=== PATIENT | female | born 1960 | race Caucasian/White ===

== ENCOUNTER → 2024-05-11 12:17 | Outpatient (CLI) | payer OTHER, SELFPAY ==
--- NOTE | 2024-05-11 12:19 | DI.RAD.S_ITS ---
PROCEDURE: XR DEXA AXIAL SKELETON INDICATIONS: Screening COMPARISON: None. FINDINGS: Lumbar Spine: Bone mineral density 0.855 g/cm2, T score -1.7. Left Femoral Neck: Bone mineral density 0.656 g/cm2, T score-1.7. Left Hip: Bone mineral density 0.861 g/cm2, T score -0.7. Fracture Risk Calculation (when applicable): 10-year fracture risk of a major osteoporotic fracture 8.3 percent and of a hip fracture 0.8 percent. (T score greater or equal to -1.0 to: NORMAL) (T score from -1.1 to -2.4: OSTEOPENIA) (T score less than or equal to -2.5: OSTEOPOROSIS) IMPRESSION: Osteopenia with increased 10 year fracture risk as above. Follow-up guidelines as follows: Osteoporosis: Consider a repeat DEXA and Vertebral Fracture Assessment (VFA) exam in 2 years or sooner if medically necessary, to reassess this patient's status. Osteopenia: Consider a repeat DEXA in 2-3 years to reassess this patient's status, or if there is a new clinical indication. Normal: Consider a repeat DEXA in 5 years or sooner, or if there is a new clinical indication. All treatment decisions require clinical judgment and consideration of individual patient factors, including patient preferences, comorbidities, previous drug use, risk factors not captured in the FRAX model (e.g., frailty, falls, vitamin D deficiency, increased bone turnover, interval significant decline in bone density ) and possible under- or over-estimation of fracture risk by FRAX. In addition, the NOF Guide recommends that FDA-approved medical therapies be considered in postmenopausal women and men age >= 50 years with a: * Hip or vertebral (clinical or morphometric) fracture * T-score of <=-2.5 at the spine or hip * Ten-year fracture probability by FRAX of >= 3% for hip fracture or >=20% for major osteoporotic fracture. Dictated by: Gurpreet Hernandez M.D. on 05/11/2024 at 14:02 Approved by: Gurpreet Hernandez M.D. on 05/11/2024 at 14:03
== END ==
PROVIDERS: Referring Provider Orthopaedic Surgery Hand Surgery; Visit Provider Orthopaedic Surgery Hand Surgery
DX: Z13.820 Encounter for screening for osteoporosis (principal); M85.89 Other specified disorders of bone density and structure, multiple sites; Z78.0 Asymptomatic menopausal state
CPT/HCPCS: 77080

== ENCOUNTER → 2025-01-05 12:31 | Outpatient (CLI) | payer OTHER, SELFPAY | PROVIDERS: Visit Provider Registered Nurse | DX: R30.0 Dysuria (principal) | CPT/HCPCS: 87086 ==

== ENCOUNTER 2025-01-06 23:10 | Emergency (ER) | payer OTHER, SELFPAY ==
[2025-01-06 23:33] VITALS: BP 136/69; PULSE 98; RESP 18; TEMP 36.4; O2SAT 96; BMI 39.0
--- NOTE | 2025-01-06 23:36 | DI.CT.S_ITS ---
PROCEDURE: CT ABDOMEN PELVIS WO CON INDICATIONS: right flank pain with blood in urine TECHNIQUE: CT of the abdomen and pelvis was obtained without intravenous contrast. Coronal and sagittal reformats were performed. For radiation dose reduction, the following was used: automated exposure control, adjustment of mA and/or kV according to patient size. COMPARISON: None. FINDINGS: Image quality: Diagnostic. Lower Chest: No significant findings. ABDOMEN: Liver: No contour-deforming mass. Gallbladder: Post cholecystectomy Biliary ducts: No biliary dilation. Pancreas: No ductal dilation. Spleen: Size is within normal limits. Adrenal Glands: No adrenal nodules. Kidneys and Ureters: A 5 mm stone in the distal right ureter at the ureterovesicular junction (Hounsfield units of 372) (2/122) with mild right hydroureteronephrosis. No left nephrolithiasis or hydronephrosis. Stomach and Bowel: Normal colonic caliber, without significant wall thickening. Normal appendix. Peritoneum: No abnormal intraperitoneal fluid. No free air. Ventral Wall: No significant hernia. Abdominal Nodes: No retroperitoneal or mesenteric adenopathy by size criteria. Vessels: Aorta and inferior vena cava are normal in size. PELVIS: Pelvic Organs: Unremarkable. Bladder: Unremarkable. Pelvic Nodes: No enlarged lymph nodes. Miscellaneous: No inguinal hernias are seen. Bones: No aggressive osseous abnormality. Mild anterolisthesis of L4 on L5 with degenerative disc disease at this level.. IMPRESSION: Partially obstructive 5 mm stone at the right uretrovesicular junction. Dictated by: Austin Geiger M.D. on 01/07/2025 at 0:27 Approved by: Austin Geiger M.D. on 01/07/2025 at 0:30
[2025-01-06] MEDS: KETOROLAC 30 MG/ML VIAL 15 MG IV (23:48)
[2025-01-06] MEDS: ONDANSETRON 4 MG/2 ML INJ IV (23:49)
[2025-01-07] LABS: Add Manual Diff / Slide Review NO; Hematocrit 36.0 % (36-46); Hemoglobin 11.9 g/dL (12.0-16.0); Lymphocytes Absolute Auto 1600 /uL (1100-4500); Mean Corpuscular HGB Conc 33.0 % (30-36); Mean Corpuscular Hemoglobin 28.1 PG (26-34); Mean Corpuscular Volume 85.2 fL (80-100); Platelet Count 279 X10^3/uL (150-400)
[2025-01-07 00:13] LABS: Alanine Aminotransferase 22 IU/L (<35); Albumin 4.6 g/dL (3.5-5.0); Albumin Globulin Ratio 1.3 (1.0-2.8); Alkaline Phosphatase 110 U/L (38-126); Blood Urea Nitrogen 21 mg/dL (7-17); Calcium 9.3 mg/dL (8.4-10.2); Carbon Dioxide 24 mmol/L (22-32); Chloride 104 mmol/L (98-107); Estimated Glomerular Filt Rate > 60 mL/min (>60); Globulin 3.5 g/dL (1.7-4.1); Glucose 156 mg/dL (70-99); HEMOLYSIS 15 (0-50); Potassium 3.8 mmol/L (3.4-5.1); Sodium 138 mmol/L (137-145); Total Protein 8.1 g/dL (6.3-8.2)
[2025-01-07 02:51] VITALS: BP 142/80; PULSE 77; RESP 18; O2SAT 96
[2025-01-07 03:00] VITALS: PULSE 79; O2SAT 95
[2025-01-07 03:01] VITALS: BP 137/81; PULSE 76; O2SAT 94
--- NOTE | 2025-01-07 03:10 | ED.ABDPAIN ---
HPI - Abdominal Pain General Chief Complaint: Urogenital-Female Stated Complaint: Poss UTI/kidney stones, back pain, nauseous Time Seen by Provider: 01/07/25 03:10 Source: patient Mode of arrival: Ambulatory History of Present Illness HPI narrative: 64-year-old female without history of known kidney stones, complains of right lower abdominal discomfort. Recently seen Clinic, blood in urine, urine culture sent, not taking oral antibiotics. Worsening pain last night. No fevers or chills. Nausea with multiple episodes nonbloody emesis. No diarrhea. No history of colitis or diverticulitis. Related Data Home Medications ?Medication ?Instructions ?Recorded ?Confirmed OMEGA-3 FATTY ACIDS (FISH OIL) ##0 04/07/16 01/05/25 [OSTEO BIFLEX] ##0 04/07/16 01/05/25 albuterol sulfate 90 mcg/actuation 2 puff INH PRN PRN ##0 04/07/16 01/05/25 aerosol inhaler (Ventolin HFA) cetirizine 10 mg tablet 10 mg PO QDAY ##0 04/07/16 01/05/25 Previous Rx's ?Medication ?Instructions ?Recorded lisinopril 10 mg tablet 10 mg PO BID #180 tabs 04/19/17 naproxen 500 mg tablet 500 mg PO BID 7 days #14 tabs 01/07/25 tamsulosin 0.4 mg capsule 0.4 mg PO DAILY #14 caps 01/07/25 Allergies Allergy/AdvReac Type Severity Reaction Status Date / Time No Known Drug Allergies Allergy Verified 01/06/25 23:33 Patient History Medical History (Updated 01/07/25 @ 03:17 by Germán Ortiz MD) Hypertension (Unknown) Asthma (2004) ADHD (attention deficit hyperactivity disorder) (2011) Chickenpox (1965) Anemia (1962) Surgical History S/P ACL repair (2000) Status post hysterectomy Status post breast reduction Family History Father Heart disease Social History Smoking Status: Never smoker Smoking Status: Never smoker Exam Narrative Exam Narrative: GENERAL: Well-developed patient, in mild distress. HEAD: Atraumatic. Normocephalic. EYES: Pupils equal round and reactive. Extraocular motions intact. No scleral icterus. No injection or drainage. ENT: no facial droop, no obvious facial swelling or trauma. NECK: Trachea midline. Non tender CARDIOVASCULAR: Regular rate and rhythm without murmurs, gallops, or rubs. RESPIRATORY: Clear to auscultation. Breath sounds equal bilaterally. No wheezes, rales, or rhonchi. GASTROINTESTINAL: Abdomen soft, non-tender, nondistended. EXTREMITIES: No edema or joint tenderness. BACK: Nontender without deformity or crepitance. No flank tenderness. NEURO: AOx3. Motor functions grossly nonfocal. SKIN: No rash or erythema of visible areas Initial Vital Signs Initial Vital Signs: Vital Signs Temperature 97.6 F 01/06/25 23:33 Pulse Rate 98 H 01/06/25 23:33 Respiratory Rate 18 01/06/25 23:33 Blood Pressure 136/69 01/06/25 23:33 Pulse Oximetry 96 01/06/25 23:33 Oxygen Delivery Method Room Air 01/06/25 23:33 Course Orders Ordered: Discontinued Medications Hydrocodone Bitart/Acetaminophen (Hydrocodone/Acet 5/325 Prepack) 1 bottle MISC DIRECTED ONE Stop: 01/07/25 03:17 Last Admin: 01/07/25 03:48 Dose: 1 bottle Documented By: HANNAH Ketorolac Tromethamine (Ketorolac 30 Mg/Ml Vial) 15 mg IV NOW ONE Stop: 01/06/25 23:37 Last Admin: 01/06/25 23:48 Dose: 15 mg Documented By: HANNAH Ondansetron HCl (Ondansetron 4 Mg/2 Ml Inj) 4 mg IV NOW ONE Stop: 01/06/25 23:37 Last Admin: 01/06/25 23:49 Dose: 4 mg Documented By: HANNAH Ondansetron HCl (Ondansetron 4 Mg Odt Prepack) 1 bottle MISC DIRECTED ONE Stop: 01/07/25 03:17 Last Admin: 01/07/25 03:48 Dose: 1 bottle Documented By: HANNAH Vital Signs Vital signs: Vital Signs - 8 hr 01/06/25 23:33 01/07/25 02:51 01/07/25 02:51 Temperature 97.6 F Pulse Rate 98 H 77 Respiratory Rate 18 18 Blood Pressure 136/69 142/80 H Pulse Oximetry 96 96 Oxygen Delivery Method Room Air Room Air MDM - Abdominal Pain Lab Data Attestation: I reviewed the patient's lab results. Lab results narrative: White blood cell count 19690, hemoglobin 11.9, platelets adequate. Glucose 156. Renal function, serum CO2, electrolytes unremarkable. Liver functions normal. 01/06/25 23:50 01/06/25 23:50 Labs: Lab Results 01/06/25 01/07/25 Range/Units 23:50 03:28 WBC 10.2 (4.5-11.0) X10^3/uL RBC 4.23 (4.0-5.2) X10^6/uL Hgb 11.9 L (12.0-16.0) g/dL Hct 36.0 (36-46) % MCV 85.2 (80-100) fL MCH 28.1 (26-34) PG MCHC 33.0 (30-36) % RDW 15.8 H (11.6-14.8) % Plt Count 279 (150-400) X10^3/uL Neut % (Auto) 77.5 H (50-75) % Lymph % (Auto) 16.1 L (25-40) % [place] % (Auto) 4.2 (3-14) % Eos % (Auto) 1.1 L (2-4) % Baso % (Auto) 1.1 (0-2) % Neut # (Auto) 7900 H (4348-5252) /uL Lymph # (Auto) 1600 (9799-6734) /uL [place] # (Auto) 400 (0-900) /uL Eos # (Auto) 100 (0-450) /uL Baso # (Auto) 100 (0-100) /uL Sodium 138 (137-145) mmol/L Potassium 3.8 (3.4-5.1) mmol/L Chloride 104 (98-107) mmol/L Carbon Dioxide 24 (22-32) mmol/L BUN 21 H (7-17) mg/dL Creatinine 0.91 (0.52-1.04) mg/dL Estimated GFR > 60 (>60) mL/min BUN/Creatinine Ratio 23.1 H (6-22) Glucose 156 H (70-99) mg/dL Calcium 9.3 (8.4-10.2) mg/dL Total Bilirubin 0.4 (0.2-1.3) mg/dL AST 32 (14-36) IU/L ALT 22 (<35) IU/L Alkaline Phosphatase 110 (38-126) U/L Total Protein 8.1 (6.3-8.2) g/dL Albumin 4.6 (3.5-5.0) g/dL Globulin 3.5 (1.7-4.1) g/dL Albumin/Globulin Ratio 1.3 (1.0-2.8) Urine RBC 0-1/hpf (0-5/HPF) Urine WBC None seen (0-5/HPF) Ur Squamous Epith Cells 0-1 /hpf (0-5/HPF) Urine Bacteria None seen (None) Ur Culture Indicated? Cult not indicated Vol Urine Centrifuged 10ml (spun) Point of care testing: Urine Dip Bedside Urine Glucose Negative Bedside Urine Bilirubin - Negative Bedside Urine Ketone - Negative Urine Specific [place] 1.025 Bedside Urine Occult Blood + Bedside Urine pH 6.0 Bedside Urine Protein - Negative Bedside Urine Urobilinogen - Negative Bedside Urine Nitrite - Negative Bedside Urine Leukocytes - Negative Esterase Imaging Data CT scan - abdomen/pelvis: Radiologist's Impression: [place] [address] CT Scan Report Signed Patient: Paula Nieves V MR#: [id number] : 1960 Acct:[id number] Age/Sex: 64 / F Date of Service: 01/06/25 Loc: ED Accession Number: [id number] Procedure: CT abdomen pelvis wo con Ordering Provider: Germán Ortiz MD PROCEDURE: CT ABDOMEN PELVIS WO CON INDICATIONS: right flank pain with blood in urine TECHNIQUE: CT of the abdomen and pelvis was obtained without intravenous contrast. Coronal and sagittal reformats were performed. For radiation dose reduction, the following was used: automated exposure control, adjustment of mA and/or kV according to patient size. COMPARISON: None. FINDINGS: Image quality: Diagnostic. Lower Chest: No significant findings. ABDOMEN: Liver: No contour-deforming mass. Gallbladder: Post cholecystectomy Biliary ducts: No biliary dilation. Pancreas: No ductal dilation. Spleen: Size is within normal limits. Adrenal Glands: No adrenal nodules. Kidneys and Ureters: A 5 mm stone in the distal right ureter at the ureterovesicular junction (Hounsfield units of 372) (2/122) with mild right hydroureteronephrosis. No left nephrolithiasis or hydronephrosis. Stomach and Bowel: Normal colonic caliber, without significant wall thickening. Normal appendix. Peritoneum: No abnormal intraperitoneal fluid. No free air. Ventral Wall: No significant hernia. Abdominal Nodes: No retroperitoneal or mesenteric adenopathy by size criteria. Vessels: Aorta and inferior vena cava are normal in size. PELVIS: Pelvic Organs: Unremarkable. Bladder: Unremarkable. Pelvic Nodes: No enlarged lymph nodes. Miscellaneous: No inguinal hernias are seen. Bones: No aggressive osseous abnormality. Mild anterolisthesis of L4 on L5 with degenerative disc disease at this level.. IMPRESSION: Partially obstructive 5 mm stone at the right uretrovesicular junction. Dictated by: Austin Geiger M.D. on 01/07/2025 at 0:27 Approved by: Austin Geiger M.D. on 01/07/2025 at 0:30 MDM Narrative Medical decision making narrative: 64-year-old female with right-sided flank and abdominal pain onset last night, no trauma. Afebrile, no history of known stones. CT renal protocol ordered along with labs from triage, IV Toradol given, pain improved by the time patient was seen in available exam room. Lab data: White blood cell count 08194, hemoglobin 11.9, platelets adequate. Glucose 156. Renal function, serum CO2, electrolytes unremarkable. Liver functions normal. UA blood otherwise negative. CT abdomen and pelvis shows 5 mm diameter mid right ureteral stone. See radiology report. Home trial for now, pain well controlled, no obvious UTI, no sepsis. Patient agrees. Rx for pain medications, NSAIDs, tamsulosin. FU with urology, contact clinic info given. DC home. Return precaustions discussed. Discharge Plan Departure Patient Disposition: Home Clinical Impression: Right ureteral stone Activity Restrictions/Additional Instructions: Right-sided nontraumatic abdominal pain, recent clinic visit with blood in the urine and urine culture pending. No fevers on triage covered mouth of the episodes of nausea and vomiting. CT abdomen and pelvis tonight showed right-sided partially obstructing 5 mm ureteral stone fairly low close to the bladder. Trial of expulsive therapy as an outpatient for now. Tamsulosin might be helpful to help expel the stone quicker, prescription sent to your pharmacy. You had improvement with Toradol. Consider use of naproxen as needed for pain control. Home pack of ondansetron to control nausea if needed. Home pack of hydrocodone/acetaminophen to take for additional pain control measures if needed. Consider recheck with your regular doctor in the next few days. Consider follow up with local urologists, contact clinic information provided, call clinic tomorrow for close follow up appointment. Return to this/nearest emergency department for any change worsening symptoms or any concerns prior. Prescriptions: New tamsulosin 0.4 mg capsule 0.4 mg PO DAILY Qty: 14 0RF naproxen 500 mg tablet 500 mg PO BID 7 Days Qty: 14 0RF No Action albuterol sulfate [Ventolin HFA] 90 MCG/PUFF HFA aerosol inhaler 2 puff INH PRN PRNQty: 0 cetirizine 10 MG tablet 10 mg PO QDAY Qty: 0 OMEGA-3 FATTY ACIDS (FISH OIL) Qty: 0 [OSTEO BIFLEX] Qty: 0 lisinopril 10 MG tablet 10 mg PO BID Qty: 180 3RF Referrals: Gonzalo Mary DO [Physician, Urology] Miscellaneous,Doctor, [Primary Care Provider, Medical] Stand Alone Forms: Patient Portal/API
[2025-01-07] MEDS: ONDANSETRON 4 MG ODT PREPACK 1 BOTTLE MISC (03:48)
[2025-01-07 03:49] VITALS: PULSE 79; O2SAT 93
[2025-01-07 03:50] VITALS: BP 129/77; PULSE 76; O2SAT 95
[2025-01-07 04:00] LABS: Culture Indicated Urine Cult Not Indicated
== END 2025-01-07 04:03 | disposition home or self-care (01) ==
PROVIDERS: Emergency Provider Emergency Medicine
DX: N20.1 Calculus of ureter (principal)
CPT/HCPCS: 74176; 80053; 81003; 81015; 85025; 87086; 96374; 96375; 99283; 99284; J1885; J2405